=== PATIENT | female | born 1960 | race Caucasian/White ===

== ENCOUNTER 2016-11-26 07:22 | Outpatient (CLI) | payer OTHER ==
--- NOTE | 2016-11-26 16:10 | MRI Report ---
MRI LUMBAR SPINE WITHOUT CONTRAST INDICATION: 56-year-old female with pain at L3, L4 and L5. COMPARISON: None. TECHNIQUE: 1. Sagittal STIR, T1 and T2. 2. Axial T1 and T2. FINDINGS: There appear to be 5 psa-[id number]-[id number], lumbar-type vertebrae. Axial images suggest a minor, levoconvex curvature with apex at about the L4-L5 disk level. In the sagittal plane, there is minor, step-bonilla retrolisthesis of L3 on L4 and L4 on L5. Alignment is otherwise unremarkable. There is at least mild anterior wedging of T11, consistent with the sequela of old healed endplate co mpression fracture. The vertebral body heights are otherwise preserved. Degenerative changes are demonstrated in the disks at T11-T12, L3-L4, and L4-L5. There appears to be mild to moderate disk space narrowing at T11-T12 and mild narrowing at L3-L4. The disk space heights are otherwise preserved. A few intraosseous hemangiomata are demonstrated. The marrow signal intensity is otherwise unremarkab le. The conus terminates in an appropriate fashion above the L1-L2 disk level. There is no abnormal thick ening or lipomatous change of the filum terminale. Axial Images: L1-L2: No disk herniation. No spinal canal or foraminal stenosis. L2-L3: No disk herniation. No spinal canal or foraminal stenosis. L3-L4: Minimal disk bulge. Broad-based left intraforaminal/extraforaminal extrusion. Mild to moderate left foraminal stenosis. Minimal right foraminal narrowing. No spinal stenosis. L4-L5: Circumferential disk bulge with superimposed, small posterior central protrusion. Suspect carey y degenerative facet arthrosis. Minimal bony hypertrophy. Mild to moderate redundancy of ligamenta fl jennifer. Circumferential thecal sac compression without significant appearing central or subarticular zon e spinal stenosis. Mild bilateral foraminal stenoses. L5-S1: Tiny left intraforaminal protrusion. Degenerative facet arthrosis without significant bony hyp ertrophy. No spinal stenosis. Mild left foraminal stenosis. A mild amount of fatty atrophy is noted in the posterior paraspinal musculature. A roughly [address] rounded T2 hyperintense focus is identified in the posterior cortex, lower pole right kidney, con sistent with a benign cortical cyst. IMPRESSION: 1. Degenerative disk and facet changes are demonstrated in the mid and lower lumbar spine as document ed in detail above. 2. No significant-appearing spinal canal or foraminal stenosis is demonstrated. There is no evidence of neural impingement. Referring Provider Line: [phone] SITE ID: [id number]
== END 2016-11-26 07:23 | disposition home or self-care (01) ==
LOC: DI 07:22
PROVIDERS: ATTEND Specialist
DX: M51.36 Other intervertebral disc degeneration, lumbar region (principal); M51.34 Other intervertebral disc degeneration, thoracic region; M51.26 Other intervertebral disc displacement, lumbar region; M47.897 Other spondylosis, lumbosacral region; M51.27 Other intervertebral disc displacement, lumbosacral region; M47.896 Other spondylosis, lumbar region
CPT/HCPCS: 72148

== ENCOUNTER 2017-01-13 09:25 | Day surgery (SDC) | payer OTHER ==
[2017-01-13 09:55] LABS: HCG UR QUAL NEGATIVE
[2017-01-13] MEDS ORDERED: LACTATED RINGERS 1,000 ML IV ONE ×2 (10:17→11:09)
[2017-01-13] MEDS ORDERED: fentaNYL 100 MCG/2 ML VIAL IVP ONE (11:01)
[2017-01-13] MEDS ORDERED: MIDAZOLAM 2 MG/2 ML VIAL IVP ONE (11:01)
[2017-01-13 12:10] VITALS: BP 104/63
== END 2017-01-13 09:26 | disposition home or self-care (01) ==
LOC: SDS 09:25
PROVIDERS: ATTEND Surgery
PROC: 0DJD8ZZ Inspection of Lower Intestinal Tract, Via Natural or Artificial Opening Endoscopic (ICD-10-PCS; principal; 2017-01-13 10:30)
DX: Z12.11 Encounter for screening for malignant neoplasm of colon (principal); K64.8 Other hemorrhoids; K57.90 Diverticulosis of intestine, part unspecified, without perforation or abscess without bleeding; F32.9 Major depressive disorder, single episode, unspecified; F41.9 Anxiety disorder, unspecified; Z85.3 Personal history of malignant neoplasm of breast; Z87.891 Personal history of nicotine dependence
CPT/HCPCS: 45378; 81025; J7120

== ENCOUNTER 2017-05-20 11:36 | Outpatient (CLI) | payer OTHER ==
--- NOTE | 2017-05-21 17:16 | Mammography Report ---
DIGITAL SCREENING RIGHT MAMMOGRAM: 05/20/2017 CLINICAL INDICATION: A 56-year-old with personal history of left breast cancer, status post mastectomy. TECHNIQUE: Right CC, MLO, implant-displaced views were obtained. FINDINGS: The right breast demonstrates scattered fibroglandular densities. A right subpectoral saline implant is noted. No suspicious masses, clustered microcalcifications, or regions of architectural distortion are identified. IMPRESSION: BENIGN FINDINGS. RECOMMENDATION: ROUTINE ANNUAL SCREENING UNLESS OTHERWISE CLINICALLY INDICATED. BIRADS CATEGORY 2-BENIGN FINDINGS. STANDARD QUALIFYING STATEMENTS: 1. This examination was reviewed with the aid of Computer-Aided Detection (CAD). 2. A negative or benign imaging report should not delay biopsy if clinically suspicious findings are present. Consider surgical consultation if warranted. More than 5% of cancers are not identified by imaging. 3. Dense breasts may obscure an underlying neoplasm. TD: 05/21/2017 17:10
== END 2017-05-20 11:37 | disposition home or self-care (01) ==
LOC: DI 11:36
PROVIDERS: ATTEND Internal Medicine Hematology & Oncology
DX: Z12.31 Encounter for screening mammogram for malignant neoplasm of breast (principal); Z85.3 Personal history of malignant neoplasm of breast; Z90.12 Acquired absence of left breast and nipple

== ENCOUNTER 2017-09-16 16:34 | Outpatient (CLI) | payer OTHER ==
--- NOTE | 2017-09-16 18:35 | MRI Report ---
EXAM: MRI LUMBAR SPINE WITHOUT CONTRAST EXAM DATE: 09/16/2017 05:11 PM. CLINICAL HISTORY: Low back pain. COMPARISON: 11/26/16. TECHNIQUE: Multiplanar, multisequence T1-weighted and fluid-sensitive sequences of the lumbar spine f rom T12 to S1 without contrast. Other: None. FINDINGS: Spinal Cord: The conus terminates at L1. Unremarkable appearance of the conus medullaris. Alignment: No change of alignment. Bone Marrow: Five iol-suq-vmmcuhc lumbar vertebral bodies are assumed. Lumbar vertebral body heights are maintained. No acute marrow edema. Chronic irregular concavity of the inferior T11 vertebral body endplate. Stable shallow small chronic degenerative Schmorl's nodes at the disk spaces at the T12-L1 and L1-L2 levels. Disk Levels/Facets: T12-L1: Unremarkable. L1-L2: Unremarkable. L2-L3: Unremarkable. L3-L4: Stable degenerative changes including prominent left foraminal stenosis from intraforaminal di sk herniation with potential far left L3 nerve root displacement or compression. L4-L5: Stable mild degenerative changes without evidence for progressive or high-grade stenosis. L5-S1: Unremarkable. Musculature: Normal. No edema or fatty atrophy. Other: None. IMPRESSION: No acute abnormality or significant change. Degenerative changes are present at multiple levels. The most finding appears to be foraminal stenosis from intraforaminal disk herniation on the left at the L3-L4 level. Comment: The following findings are so common in adults without low back pain that while we report th eir presence, they must be interpreted with caution and in the context of the clinical situation. (Re eliezer Meng et al, Spine 2001) Prevalence of findings in patients without low back pain: Disk degeneration (any evidence): 92% Disk desiccation/T2 signal loss: 83% Disk height loss: 56% Disk bulge: 64% Disk protrusion: 32% Annular tear/high intensity zone: 38% [facility] Referring Provider Line: [phone] SITE ID: [id number]
== END 2017-09-16 16:35 | disposition home or self-care (01) ==
LOC: DI 16:34
PROVIDERS: ATTEND Physician Assistant
DX: M54.5 Low back pain (principal); M51.26 Other intervertebral disc displacement, lumbar region
CPT/HCPCS: 72148

== ENCOUNTER 2018-08-17 08:30 | Outpatient (CLI) | payer OTHER ==
--- NOTE | 2018-08-17 11:36 | Mammography Report ---
Reason: RT BREAST PAIN, HX LT BREAST CA Procedure Date: 08/17/2018 Accession Number: [id number] / [id number] Procedure: NICK - Diagnostic Dig RT CPT Code: FULL RESULT: EXAM: Diagnostic Dig RT DATE: 08/17/2018 9:35 AM CLINICAL HISTORY: Diagnostic examination. Right breast pain. History of left breast cancer status post mastectomy with reconstruction and right breast augmentation for symmetry in 2016 status post reversal in 2018. TECHNIQUE: (R) - Right CC and MLO views were obtained. Right ML view was obtained. COMPARISON: 05/20/2017 through 03/10/2012. PARENCHYMAL PATTERN: (A) - The breast(s) demonstrate(s) scattered fibroglandular densities. FINDINGS: Postsurgical changes are noted within the right breast. There are no suspicious masses, calcifications, or areas of distortion. IMPRESSION: Benign findings. BI-RADS category 2. RECOMMENDATION: (ANNUAL) - Recommend routine annual screening mammography. BI-RADS CATEGORY: (2) - Benign Findings. STANDARD QUALIFYING STATEMENTS: 1. This examination was not reviewed with the aid of Computer-Aided Detection (CAD). 2. A negative or benign imaging report should not preclude biopsy if clinically suspicious findings are present. 3. Dense breasts may obscure an underlying neoplasm. 4. This examination was reviewed with the aid of 3D breast imaging (tomosynthesis).
== END 2018-08-17 08:31 | disposition home or self-care (01) ==
LOC: DI 08:30
PROVIDERS: ATTEND Physician Assistant
DX: N64.4 Mastodynia (principal); Z85.3 Personal history of malignant neoplasm of breast; Z90.12 Acquired absence of left breast and nipple

== ENCOUNTER 2019-07-05 11:07 | Outpatient (CLI) | payer OTHER ==
--- NOTE | 2019-07-05 12:15 | Ultrasound Report ---
Reason: THYROID Procedure Date: 07/05/2019 Accession Number: [id number] / [id number] Procedure: US - Head or Neck Soft Tissue CPT Code: Final Report FULL RESULT: EXAM: THYROID ULTRASOUND EXAM DATE: 07/05/2019 11:49 AM. CLINICAL HISTORY: Thyrotoxicosis. COMPARISON: None. TECHNIQUE: Real time sonographic imaging of the thyroid was performed by the reiki practitioner. Multiple customer solutions representative static images were saved for review. FINDINGS: THYROID GLAND: Right Lobe: 5.1 x 2.1 x 2.3 cm, volume 12.8 cc. Normal background echotexture. Right Lobe Nodules: 1. A large heterogeneous nodule of the mid to lower lobe measures 3.2 x 2.0 x 1.9 cm and is largely isoechoic with several cystic components measuring up to 5.5 mm. 2. Hypoechoic solid and cystic nodule with peripheral calcification in the lower pole measures 1.2 x 0.8 x 1.2 cm. Left Lobe: 4.2 x 1.0 x 0.9 cm, volume 1.8 cc. Atrophic. Normal background echotexture. Left Lobe Nodules: None. Isthmus: 0.2 cm AP. Normal background echotexture. Isthmic Nodules: None. LYMPH NODES: No adenopathy demonstrated in the central or lateral compartment. OTHER: None. IMPRESSION: 1. Large heterogeneous predominantly solid and isoechoic 3.2 cm right thyroid nodule meets RICK criteria for recommended biopsy. 2. Additional predominantly solid 1.2 cm right lower pole thyroid nodule also meets RICK criteria for recommended biopsy. 3. No parenchymal enlargement or hypervascularity evident. 4. Thyroid gland atrophy. Management recommendations are based on 2015 [place] [employer] Management Guidelines for Adult Patients with Thyroid Nodules and Differentiated Thyroid Cancer. [facility]
== END 2019-07-05 11:08 | disposition home or self-care (01) ==
LOC: DI 11:07
PROVIDERS: ATTEND Internal Medicine
DX: E04.2 Nontoxic multinodular goiter (principal); E05.90 Thyrotoxicosis, unspecified without thyrotoxic crisis or storm
CPT/HCPCS: 76536

== ENCOUNTER 2019-10-28 10:00 | Outpatient (CLI) | payer OTHER | END 2019-10-28 10:01 | disposition home or self-care (01) | LOC: DI.N 10:00 | DX: Z53.9 Procedure and treatment not carried out, unspecified reason (principal) | CPT/HCPCS: 77063 ==

== ENCOUNTER 2020-05-05 13:10 | Outpatient (CLI) | payer OTHER ==
--- NOTE | 2020-05-05 13:34 | XRAY Report ---
PROCEDURE: Knee 3 View LT INDICATIONS: L KNEE PAIN TECHNIQUE: 3 views of the left knee(s) were acquired. COMPARISON: None. FINDINGS: Bones: No fractures or dislocations. No suspicious bony lesions. Mild tricompartmental periarticul ar osteophyte formation. Soft tissues: No joint effusion. No suspicious soft tissue calcifications. IMPRESSION: Osteoarthritis. No acute fracture. No osseous lesion. If symptoms and/or clinical suspic ion for pathology continue, further assessment with repeat plain films, or advanced imaging (e.g., CT , MRI, or bone scan) is recommended for further assessment. Reviewed by: Trisha Yang MD on 05/05/2020 1:33 PM PST Approved by: Trisha Yang MD on 05/05/2020 1:33 PM PST Station ID: [id number]
== END 2020-05-05 13:11 | disposition home or self-care (01) ==
LOC: DI 13:10
PROVIDERS: ATTEND Physician Assistant Medical
DX: M17.12 Unilateral primary osteoarthritis, left knee (principal)

== ENCOUNTER 2021-06-12 16:51 | Emergency (ER) | payer OTHER ==
[2021-06-12 17:08] VITALS: BP 163/74
== END 2021-06-12 18:15 | disposition left against medical advice (07) ==
LOC: ED 16:51
DX: Z53.21 Procedure and treatment not carried out due to patient leaving prior to being seen by health care provider (principal)

== ENCOUNTER 2022-08-08 18:35 | Outpatient (CLI) | payer OTHER ==
--- NOTE | 2022-08-09 09:24 | Ultrasound Report ---
PROCEDURE: Head or Neck Soft Tissue INDICATIONS: THYROTOXICOSIS TECHNIQUE: Real-time scanning was performed of the thyroid gland, with image documentation. COMPARISON: None FINDINGS: Right: Thyroid lobe measures 5.6 x 2.5 x 2.7 cm, and is homogeneous in echotexture. Left: Thyroid lobe measures 3.9 x 0.8 x 0.9 cm, and is homogenous in echotexture. Isthmus: 1 mm thick. Nodule number: One Location: Right midpole Size: 3.6 x 2.1 x 2.5 cm. Previously 3.2 x 2.0 x 1.9 cm. Composition: Mixed cystic and solid (1 point). Echogenicity: Hypoechoic (2 points). Shape: wider than tall. Margins: Smooth (0 points). Echogenic foci: None (0 points). Total points: 3 ACR TI-RADS category: Mildly suspicious (3 points). Nodule number: Two Location: Location Size: 0.6 x 0.5 x 0.7 cm. Previously 1.2 x 0.8 x 1.2 cm. Composition: Solid (2 points). Echogenicity: Hypoechoic (2 points). Shape: wider than tall. Margins: Smooth (0 points). Echogenic foci: Punctate echogenic foci (3 points). Total points: 7 ACR TI-RADS category: Highly suspicious (7 points or greater). IMPRESSION: Slight interval growth of the mildly suspicious pattern nodule in the right midpole. This does meet s ize criteria for biopsy. High suspicion pattern nodule in the inferior pole of the right thyroid has decreased in size. This d oes not meet size criteria for biopsy. Continued surveillance is recommended. ACR TI-RADS definitions and recommendations: TI-RADS 1 (benign): 0 points. FNA not needed. TI-RADS 2 (not suspicious): 2 points. FNA not needed. TI-RADS 3 (mildly suspicious): 3 points. "FNA if 2.5 cm or larger, follow up if 1.5 cm or larger (at 1, 3, and 5 years). TI-RADS 4 (moderately suspicious): 4-6 points. "FNA if 1.5 cm or larger, follow up if 1 cm or larger (at 1, 2, 3, and 5 years). TI-RADS 5 (highly suspicious): 7 points or more. "FNA if 1 cm or larger, follow up if 0.5 cm or larger (every year for 5 years). Reviewed by: Dimas Friend on 08/09/2022 9:22 AM PDT Approved by: Dimas Friend on 08/09/2022 9:22 AM PDT Station ID: [id number]
== END 2022-08-08 18:36 | disposition home or self-care (01) ==
LOC: DI 18:35
PROVIDERS: ATTEND Student in an Organized Health Care Education/Training Program
DX: E04.2 Nontoxic multinodular goiter (principal)

== ENCOUNTER 2022-09-02 09:24 | Outpatient (CLI) | payer OTHER ==
--- NOTE | 2022-09-03 11:32 | Mammography Report ---
UNILATERAL RIGHT DIGITAL SCREENING MAMMOGRAM 3D/2D: 09/02/2022 CLINICAL: Routine screening. Personal history of left breast cancer. Comparison is made to exams dated: 10/28/2019 mammogram, 08/27/2018 mammogram, 05/20/2017 mammogram, 10/12 ultrasound biopsy, 10/19/2015 mammogram, and 09/15/2015 mammogram - [facility]. There are scattered areas of fibroglandular density in the right breast (category b / 25%-50% glandul ar tissue). There are benign post operative findings in the right breast. No significant masses, calcifications, or other findings are seen in the breast. There has been no significant interval change. IMPRESSION: BENIGN There is no mammographic evidence of malignancy. A 1 year screening mammogram is recommended. This exam was interpreted at Station ID: [id number]. NOTE: For mammograms, a report in lay terms will be sent to the patient. Approximately 15% of breast malignancies will not be visualized mammographically. In the management of a palpable breast mass, a negative mammogram must not discourage biopsy of a clinically suspicious lesion. Electronically Signed By: Silvano norman/antolin:09/02/2022 11:24:08 letter sent: No_Letter ACR BI-RADS Category 2: Benign Finding(s) 3342F PARENCHYMAL PATTERN: (A) - The breast(s) demonstrate(s) scattered fibroglandular densities. BI-RADS CATEGORY: (2) - 2 Mammogram [id number] 1 year screening LATERALITY: (B)
== END 2022-09-02 09:25 | disposition home or self-care (01) ==
LOC: DI.N 09:24
PROVIDERS: ATTEND Student in an Organized Health Care Education/Training Program
DX: Z12.31 Encounter for screening mammogram for malignant neoplasm of breast (principal); Z85.3 Personal history of malignant neoplasm of breast

== ENCOUNTER 2022-11-25 07:59 | Outpatient (CLI) | payer OTHER ==
--- NOTE | 2022-11-25 11:08 | MRI Report ---
PROCEDURE: KNEE WO - LT INDICATIONS: LT KNEE PAIN TECHNIQUE: Noncontrast sagittal PD fast spin echo and T2 fast spin echo with fat saturation, sagittal 3-D gradie nt sequence with fat saturation; coronal T1 spin echo and PD fast spin echo with fat saturation, and axial PD fast spin echo with fat saturation through the knee. COMPARISON: X-ray left knee, 05/05/2020. FINDINGS: Image quality: Excellent. Menisci: There is complex tear of the medial meniscus. A large oblique tear is seen in the posterior horn. The body of the medial meniscus truncated. The lateral meniscus appears intact. The meniscal root ligaments appear intact. Cruciate ligaments: The anterior and posterior cruciate ligaments appear intact. Medial structures: The medial collateral ligament appears intact. The semimembranosus tendon insert ions and meniscocapsular junction appear intact. Visualized portions of the pes anserinus tendons ap pear normal. No abnormal bursal fluid. Lateral structures: The lateral collateral ligament and the biceps femoris tendon appear intact. Th e popliteus tendon appears normal. Iliotibial band appears normal. Anterior structures: The quadriceps and patellar tendons appear intact. Patellar alignment is yoel l. No femoral trochlear dysplasia or ventral trochlear prominence. No edema in the infrapatellar fa t pad. Bones and cartilage: No bone marrow contusions or fractures. Mild tricompartmental cartilage fibrill ation with relatively preserved thickness. Joint space: There is small knee joint fluid. There is a tiny Santillan's cyst. Normal appearing synovi al plicae are incidentally noted. IMPRESSION: 1. Medial meniscal tear involving the posterior horn and body. 2. Mild tricompartmental cartilage degeneration with relatively preserved cartilage thickness. 3. Small knee joint effusion. 4. A tiny Santillan's cyst. Reviewed by: Silvia You MD on 11/25/2022 11:06 AM PDT Approved by: Silvia You MD on 11/25/2022 11:06 AM PDT Station ID: [id number]
== END 2022-11-25 08:00 | disposition home or self-care (01) ==
LOC: DI 07:59
PROVIDERS: ATTEND Student in an Organized Health Care Education/Training Program
DX: S83.242A Other tear of medial meniscus, current injury, left knee, initial encounter (principal); M94.262 Chondromalacia, left knee; M25.462 Effusion, left knee; M71.22 Synovial cyst of popliteal space [Baker], left knee

== ENCOUNTER 2023-03-17 06:47 | Outpatient (CLI) | payer OTHER ==
--- NOTE | 2023-03-17 11:48 | MRI Report ---
PROCEDURE: KNEE WO - RT INDICATIONS: RIGHT KNEE PAIN TECHNIQUE: Noncontrast sagittal PD fast spin echo and T2 fast spin echo with fat saturation, sagittal 3-D gradie nt sequence with fat saturation; coronal T1 spin echo and PD fast spin echo with fat saturation, and axial PD fast spin echo with fat saturation through the knee. COMPARISON: None. FINDINGS: Image quality: Excellent. Menisci: There is peripheral displacement of medial meniscus bowing medial collateral ligament. Compl ex oblique tear involving posterior horn of medial meniscus is seen extending to both superior and in ferior articulating surfaces. The lateral meniscus is intact. The meniscal root ligaments appear inta ct. Cruciate ligaments: The anterior cruciate ligament is thickened with intrasubstance T2 hyperintense signal at its distal insertion. The posterior cruciate ligament is intact. Medial structures: The medial collateral ligament appears thickened at its femoral insertion. Visual ized portions of the pes anserinus tendons appear normal. No abnormal bursal fluid. Lateral structures: The lateral collateral ligament, long and short heads of the biceps femoris tend on appear intact. The popliteus tendon appears normal; the popliteofibular ligament appears intact. Iliotibial band appears normal. Anterior structures: The quadriceps and patellar tendons appear intact. Patellar alignment is yoel l. No femoral trochlear dysplasia or ventral trochlear prominence. No edema in the infrapatellar fa t pad. Bones and cartilage: No bone marrow contusions or fractures. Mild to moderate tricompartmental osteo arthritis and chondromalacia is seen more notably in medial femoral tibial compartment. Joint space: There is small knee joint fluid. 1.5 x 1.7 x 2.9 cm Santillan's cyst is seen. Normal appea ring synovial plicae are incidentally noted. IMPRESSION: 1. Complex oblique tear involving posterior horn of medial meniscus extending to both superior and in ferior articulating surfaces. The lateral meniscus is intact. 2. Sprain/low-grade intrasubstance partial thickness tear involving anterior cruciate ligament. No AC L rupture. The PCL is intact. 3. Low-grade proximal MCL sprain at its femoral insertion. 4. Mild to moderate tricompartmental osteoarthritis and chondromalacia more notably in medial femoral tibial compartment. No fracture or dislocation. Small joint effusion and a small Santillan's cyst. No gr oss loose bodies. Reviewed by: Jim Persaud MD on 03/17/2023 11:46 AM PST Approved by: Jim Persaud MD on 03/17/2023 11:46 AM PST Station ID: [id number]
== END 2023-03-17 06:48 | disposition home or self-care (01) ==
LOC: DI 06:47
PROVIDERS: ATTEND Student in an Organized Health Care Education/Training Program
DX: S83.231A Complex tear of medial meniscus, current injury, right knee, initial encounter (principal); S83.511A Sprain of anterior cruciate ligament of right knee, initial encounter; S83.411A Sprain of medial collateral ligament of right knee, initial encounter; M17.11 Unilateral primary osteoarthritis, right knee; M94.261 Chondromalacia, right knee; M25.461 Effusion, right knee; M71.21 Synovial cyst of popliteal space [Baker], right knee

== ENCOUNTER 2023-03-17 07:53 | Outpatient (CLI) | payer OTHER | END 2023-03-17 07:54 | disposition home or self-care (01) | LOC: DI 07:53 | PROVIDERS: ATTEND Student in an Organized Health Care Education/Training Program | DX: Z53.9 Procedure and treatment not carried out, unspecified reason (principal) ==

== ENCOUNTER 2023-04-22 13:01 | Outpatient (CLI) | payer OTHER ==
--- NOTE | 2023-04-22 14:28 | XRAY Report ---
PROCEDURE: Foot 3+V LT INDICATIONS: CONTUSION LEFTT GREAT TOE TECHNIQUE: 3 views of the foot were acquired. COMPARISON: None. FINDINGS: Bones: No fractures or dislocations. No suspicious bony lesions. Soft tissues: No suspicious soft tissue calcifications or masses. IMPRESSION: No acute bony abnormality. Reviewed by: Dimas Friend MD on 04/22/2023 2:27 PM [facility] Approved by: Dimas Friend MD on 04/22/2023 2:27 PM [facility] Station ID: [id number]
== END 2023-04-22 13:02 | disposition home or self-care (01) ==
LOC: DI 13:01
PROVIDERS: ATTEND Family Medicine
DX: S90.112A Contusion of left great toe without damage to nail, initial encounter (principal)